=== PATIENT | female | born 1980 | race Caucasian/White ===

== ENCOUNTER 2024-04-27 16:57 | Emergency (ER) | payer MEDICAID ==
[~2024-04-27] VITALS: Ht 175.3 cm; Wt 93.0 kg
[2024-04-27 17:03] VITALS: BP_SYST 151; PULSE 88; RESP 18; TEMP 97.8; O2SAT 97
[2024-04-27] MEDS ORDERED: ERYEYE RIGHT EYE (18:27)
[2024-04-27] MEDS ORDERED: GENT5DRO23 EACH EYE (18:27)
[2024-04-27 19:00] VITALS: BP_SYST 151; PULSE 88; RESP 18; TEMP 97.8; O2SAT 97
[2024-04-27] MEDS ORDERED: TETRACAINE HCL/PF 0.5% OPHTHALMIC DROPS 4 ML OP ONE (19:02)
[2024-04-27] MEDS ORDERED: FLUORESCEIN SODIUM 1 MG OPHTHALMIC STRIP OP ONE (19:02)
== END 2024-04-27 19:02 | disposition home or self-care (01) ==
LOC: SED 16:57
DX: S05.01XA Injury of conjunctiva and corneal abrasion without foreign body, right eye, initial encounter (principal); Z79.899 Other long term (current) drug therapy; Z79.2 Long term (current) use of antibiotics; W22.8XXA Striking against or struck by other objects, initial encounter; Y93.89 Activity, other specified; Y92.89 Other specified places as the place of occurrence of the external cause; Y99.8 Other external cause status
CPT/HCPCS: 99283